=== PATIENT | male | born 1965 | race American Indian/Alaskan Native ===

== ENCOUNTER 2021-05-08 17:19 | Emergency (ER) | payer SELFPAY ==
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
[2021-05-08 23:41] VITALS: BP 144/81
== END 2021-05-09 00:13 | disposition home or self-care (01) ==
LOC: ED 17:19
DX: T23.272A Burn of second degree of left wrist, initial encounter (principal); F17.200 Nicotine dependence, unspecified, uncomplicated; Z79.82 Long term (current) use of aspirin; X08.8XXA Exposure to other specified smoke, fire and flames, initial encounter; Y93.89 Activity, other specified; Y92.89 Other specified places as the place of occurrence of the external cause; Y99.8 Other external cause status
CPT/HCPCS: 99282

== ENCOUNTER 2021-10-02 16:10 | Emergency (ER) | payer SELFPAY ==
--- NOTE | 2021-10-02 16:53 | XRay Report ---
LEFT ELBOW 3 VIEWS INDICATION / CLINICAL INFORMATION: left elbow injury. COMPARISON: None available. FINDINGS: No fracture, dislocation, or hemarthrosis noted. There is mild soft tissue swelling along the posteri or aspect of the elbow. IMPRESSION: Posterior soft tissue swelling. No fracture or malalignment. Signer Name: Vilma Conroy MD Signed: 10/02/2021 4:49 PM Workstation Name: [id number]
--- NOTE | 2021-10-02 21:04 | Emergency Department Report ---
ED Upper Extremity Inj HPI - General Chief Complaint: Extremity Injury, Upper Stated Complaint: FACTURED ELBOW Time Seen by Provider: 10/02/21 20:45 Source: patient Mode of arrival: Ambulatory Limitations: No Limitations - History of Present Illness Initial Comments: 56-year-old male [place] emerged department complaining of a trip and fall landing on his left elbow about 2 weeks ago resulting in pain and swelling which continues to aggravate him since the onset. MD Complaint: Injury to:: left, elbow -: Gradual Other Extremity Injury: Elbow: Left Other Injuries: none Place: work Improves With: none Worsens With: movement of extremity Context: fall, direct blow Associated Symptoms: denies: weakness, numbness, suspects foreign body, nausea/vomiting, heard/felt popping sensat - Related Data Previous Rx's Medication Instructions Recorded Last Taken Type Aspirin [Aspirin BABY CHEW TAB] 81 mg PO ONCE #100 tab.chew 06/28/13 Unknown Rx Hyoscyamine Subl [Levsin Sl] 0.125 mg SL Q6HR PRN #14 tablet 06/28/13 Unknown Rx Omeprazole Magnesium [Prilosec Otc] 20 mg PO QDAY #7 tablet.dr 06/28/13 Unknown Rx Ibuprofen [Motrin] 600 mg PO Q8H PRN #30 tablet 05/08/21 Unknown Rx Silver Sulfadiazine [Silvadene] 1 applic TP TID #1 tube 05/08/21 Unknown Rx Ketorolac [Toradol] 10 mg PO Q6H PRN #20 10/02/21 Unknown Rx Allergies Allergy/AdvReac Type Severity Reaction Status Date / Time No Known Allergies Allergy Unverified 05/08/21 18:22 ED Review of Systems ROS: Stated complaint: FACTURED ELBOW Other details as noted in HPI Comment: All other systems reviewed and negative ED Past Medical Hx - Past Medical History Previous Medical History?: Yes Additional medical history: left elbow injury - Surgical History Past Surgical History?: No - Social History Smoking Status: Current Some Day Smoker Substance Use Type: None - Medications Home Medications: Home Medications Medication Instructions Recorded Confirmed Last Taken Type Aspirin [Aspirin BABY CHEW TAB] 81 mg PO ONCE #100 tab.chew 06/28/13 Unknown Rx Hyoscyamine Subl [Levsin Sl] 0.125 mg SL Q6HR PRN #14 tablet 06/28/13 Unknown Rx Omeprazole Magnesium [Prilosec Otc] 20 mg PO QDAY #7 tablet. 06/28/13 Unknown Rx Ibuprofen [Motrin] 600 mg PO Q8H PRN #30 tablet 05/08/21 Unknown Rx Silver Sulfadiazine [Silvadene] 1 applic TP TID #1 tube 05/08/21 Unknown Rx Ketorolac [Toradol] 10 mg PO Q6H PRN #20 10/02/21 Unknown Rx ED Physical Exam - General Limitations: No Limitations General appearance: alert, in no apparent distress - Head Head exam: Present: atraumatic, normocephalic - Eye Eye exam: Present: normal appearance, PERRL, EOMI Pupils: Present: normal accommodation - ENT ENT exam: Present: normal exam, normal orophraynx, mucous membranes moist, TM's normal bilaterally - Neck Neck exam: Present: normal inspection, full ROM - Respiratory Respiratory exam: Present: normal lung sounds bilaterally. Absent: respiratory distress - Cardiovascular Cardiovascular Exam: Present: regular rate, normal rhythm. Absent: systolic murmur, diastolic murmur, rubs, gallop - GI/Abdominal GI/Abdominal exam: Present: soft, normal bowel sounds - Rectal Rectal exam: Present: deferred - Extremities Exam Extremities exam: Present: normal inspection, tenderness - Expanded Upper Extremity Exam Left Elbow exam: Present: tenderness, swelling (To the olecranon bursa sac.). Absent: crepidus, dislocation, erythema, pain w/ pronation/supination, tenderness over radial head - Back Exam Back exam: Present: normal inspection - Neurological Exam Neurological exam: Present: alert, oriented X3 - Psychiatric Psychiatric exam: Present: normal affect, normal mood - Skin Skin exam: Present: warm, dry, intact, normal color. Absent: rash ED Course Vital Signs 10/02/21 16:14 Temperature 98.2 F Pulse Rate 75 Respiratory 20 Rate Blood Pressure 126/73 [Right] O2 Sat by Pulse 95 Oximetry ED Medical Decision Making - Radiology Data Radiology results: report reviewed [facility] [address] [place] [address] XRay Report Signed Patient: SCOTT JIMÉNEZ MR#: [id number] [birth year] : 1965 Acct:[id number] Age/Sex: 56 / M ADM Date: 10/02/21 Loc: ED Attending Dr: Ordering Physician: ED DOC, MD Date of Service: 10/02/21 Procedure(s): XR elbow 3+V LT Accession Number(s): [id number] cc: ED MD YORDAN Fluoro Time In Minutes: LEFT ELBOW 3 VIEWS INDICATION / CLINICAL INFORMATION: left elbow injury. COMPARISON: None available. FINDINGS: No fracture, dislocation, or hemarthrosis noted. There is mild soft tissue swelling along the posterior aspect of the elbow. IMPRESSION: Posterior soft tissue swelling. No fracture or malalignment. Signer Name: Vilma Conroy MD Signed: 10/02/2021 4:49 PM Workstation Name: [id number] Transcribed By: JR Dictated By: Vilma Conroy MD Electronically Authenticated By: Vilma Conroy MD Signed Date/Time: 10/02/211648 DD/ 47 TD/TT: Critical care attestation.: If time is entered above; I have spent that time in minutes in the direct care of this critically ill patient, excluding procedure time. ED Disposition Clinical Impression: Olecranon bursitis of left elbow Disposition: 01 HOME / SELF CARE / HOMELESS Is pt being admited?: No Does the pt Need Aspirin: No Condition: Stable Instructions: Elbow Bursitis, Elbow Bursitis Rehab-Sports[facility] Prescriptions: Ketorolac [Toradol] 10 mg PO Q6H PRN #20 PRN Reason: Pain Referrals: [facility] [Provider Group] - 3-5 Days
[2021-10-02] MEDS ORDERED: HYDROcodone/ACETAMINOPHEN 5-325 MG TAB PO STA (21:33)
[2021-10-02 21:44] VITALS: BP 136/79
== END 2021-10-02 21:39 | disposition home or self-care (01) ==
LOC: ED 16:10
DX: M70.22 Olecranon bursitis, left elbow (principal); Y93.89 Activity, other specified; F17.200 Nicotine dependence, unspecified, uncomplicated; Z79.899 Other long term (current) drug therapy
CPT/HCPCS: 99283

== ENCOUNTER 2021-10-29 14:51 | Emergency (ER) | payer SELFPAY ==
[2021-10-29 15:11] VITALS: BP 135/85
== END 2021-10-29 18:00 | disposition left against medical advice (07) ==
LOC: ED 14:51
DX: R07.9 Chest pain, unspecified (principal); Z53.21 Procedure and treatment not carried out due to patient leaving prior to being seen by health care provider
CPT/HCPCS: 93005